=== PATIENT | male | born 1940 | race Caucasian/White ===

== ENCOUNTER 2017-11-14 10:00 | Outpatient (RCR) | payer MEDICARE, BC | END 2017-12-15 | disposition home or self-care (01) | LOC: PT | DX: S39.012D Strain of muscle, fascia and tendon of lower back, subsequent encounter (principal); X50.0XXD Overexertion from strenuous movement or load, subsequent encounter; Y93.H2 Activity, gardening and landscaping ==

== ENCOUNTER → 2018-01-14 | Outpatient (CLI) | payer MEDICARE, BC | LOC: RAD 07:56 | DX: K56.1 Intussusception (principal) | CPT/HCPCS: Q9967 ==

== ENCOUNTER 2019-05-27 11:30 | Outpatient (RCR) | payer MEDICARE, BC | END 2019-05-27 12:00 | disposition home or self-care (01) | LOC: PT 11:30 | DX: M54.9 Dorsalgia, unspecified (principal); R26.2 Difficulty in walking, not elsewhere classified; R53.1 Weakness ==

== ENCOUNTER → 2022-12-19 | Outpatient (CLI) | payer MEDICARE, BC | LOC: RAD 08:41 | DX: K57.30 Diverticulosis of large intestine without perforation or abscess without bleeding (principal) | CPT/HCPCS: Q9967 ==

== ENCOUNTER → 2023-09-09 | Outpatient (CLI) | payer MEDICARE, BC | LOC: RAD 15:34 | DX: R05.9 Cough, unspecified (principal) ==

== ENCOUNTER → 2023-10-02 | Outpatient (CLI) | payer MEDICARE, BC | LOC: RAD 11:59 | DX: J18.9 Pneumonia, unspecified organism (principal) ==